=== PATIENT | male | born 1995 | race American Indian/Alaskan Native ===

== ENCOUNTER 2021-02-22 13:57 | Emergency (ER) | payer SELFPAY ==
[2021-02-22 14:24] VITALS: BP 140/92
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
[2021-02-22] MEDS ORDERED: KETOROLAC 60 MG/2 ML INJ IM ONE (16:03)
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
== END 2021-02-22 17:15 | disposition home or self-care (01) ==
LOC: ED 13:57
DX: S16.1XXA Strain of muscle, fascia and tendon at neck level, initial encounter (principal); S09.90XA Unspecified injury of head, initial encounter; Z79.899 Other long term (current) drug therapy; V87.7XXA Person injured in collision between other specified motor vehicles (traffic), initial encounter; Y93.89 Activity, other specified; Y92.488 Other paved roadways as the place of occurrence of the external cause; Y99.8 Other external cause status
CPT/HCPCS: 70450; 72125; 96372; 99283; J1885